=== PATIENT | male | born 1950 | race Native Hawaiian/Other Pacific Islander ===

== ENCOUNTER 2020-09-19 08:23 | Outpatient (CLI) | payer OTHER ==
[2020-09-19 09:36] LABS: POTASSIUM 3.7 mmol/L (3.6-5.2)
[2020-09-19 09:59] LABS: PLATELET COUNT 254 K/uL (142-355)
== END 2020-09-19 19:05 | disposition home or self-care (01) ==
LOC: LABW 08:23
PROVIDERS: Internal Medicine
DX: I10 Essential (primary) hypertension (principal); E79.0 Hyperuricemia without signs of inflammatory arthritis and tophaceous disease; M25.512 Pain in left shoulder
CPT/HCPCS: 36415; 80053; 80061; 81000; 84550; 85027

== ENCOUNTER 2021-03-13 08:18 | Outpatient (CLI) | payer OTHER ==
[2021-03-13 09:13] LABS: PLATELET COUNT 191 K/uL (142-355)
[2021-03-13 09:48] LABS: POTASSIUM 3.7 mmol/L (3.6-5.2)
== END 2021-03-13 21:46 | disposition home or self-care (01) ==
LOC: LABW 08:18
PROVIDERS: ATTEND Internal Medicine
DX: I10 Essential (primary) hypertension (principal); M10.9 Gout, unspecified; N40.0 Benign prostatic hyperplasia without lower urinary tract symptoms; M19.90 Unspecified osteoarthritis, unspecified site; D45 Polycythemia vera
CPT/HCPCS: 36415; 80053; 80061; 81000; 84153; 84439; 84443; 84550; 85027

== ENCOUNTER 2021-04-06 08:53 | Outpatient (CLI) | payer OTHER ==
[2021-04-06 09:08] LABS: PLATELET COUNT 212 K/uL (142-355)
== END 2021-04-06 20:56 | disposition home or self-care (01) ==
LOC: LABW 08:53
PROVIDERS: ATTEND Internal Medicine
DX: J43.8 Other emphysema (principal)
CPT/HCPCS: 36415; 82103; 85027

== ENCOUNTER 2021-04-08 08:22 | Outpatient (CLI) | payer OTHER | END 2021-04-08 20:14 | disposition home or self-care (01) | LOC: US 08:22 | PROVIDERS: ATTEND Internal Medicine | DX: G44.211 Episodic tension-type headache, intractable (principal); R10.84 Generalized abdominal pain ==

== ENCOUNTER 2021-05-14 09:25 | Outpatient (CLI) | payer OTHER | END 2021-05-14 23:59 | disposition home or self-care (01) | LOC: RAD 09:25 | PROVIDERS: ATTEND Internal Medicine Sleep Medicine | DX: R06.02 Shortness of breath (principal) ==

== ENCOUNTER 2021-06-24 07:48 | Outpatient (CLI) | payer OTHER | END 2021-06-24 18:53 | disposition home or self-care (01) | LOC: RESP 07:48 | PROVIDERS: ATTEND Internal Medicine Sleep Medicine | DX: Z76.89 Persons encountering health services in other specified circumstances (principal); R06.09 Other forms of dyspnea ==